=== PATIENT | female | born 1935 | race African-American/Black ===

== ENCOUNTER 2019-11-17 09:59 | Inpatient (IN) | payer BC, MEDICAID ==
[~2019-11-17] VITALS: Ht 167.6 cm; Wt 78.1 kg
[~2019-11-17 09:59] MED LIST: CARV12.545 MT; DILT90TA2 PO; FURO-152 MT
[2019-11-17] MEDS ORDERED: ALBUTEROL (0.083%) 2.5MG/3ML NEB HHN STA (10:28)
[2019-11-17] MEDS ORDERED: IPRATROPIUM BROMIDE (0.02%) 0.5MG/2.5ML NEB HHN STA (10:28)
[2019-11-17] MEDS ORDERED: METHYLPREDNISOLONE SOD SUCC 125 MG/2 ML VIAL IV STA (10:28)
[2019-11-17] MEDS ORDERED: DILTIAZEM HCL 5MG/ML 5ML VIAL IV ONE (10:30)
[2019-11-17 11:36] LABS: BASOPHILS % 0.8 % (0.0-2.0); EOSINOPHILS % 1.5 % (0.0-5.0); HEMATOCRIT. 40.1 % (36.0-48.0); HEMOGLOBIN. 13.4 g/dL (12.0-16.0); LYMPHOCYTES % 23.8 % (20.0-50.0); MEAN CORPUSCULAR HEMOGLOBIN 29.8 pg (28.0-32.0); MEAN CORPUSCULAR VOLUME 88.9 fL (81.0-99.0); MEAN PLATELET VOLUME 8.5 fl (7.4-10.4); MONOCYTES % 12.1 % (2.0-8.0); NEUTROPHILS % 61.8 % (40.0-76.0); PLATELET 195 x1000/uL (130-400); RED BLOOD CELL COUNT 4.51 mill/uL (4.2-5.4); RED CELL DISTRIBUTION WIDTH 16.9 % (11.6-14.6)
[2019-11-17] MEDS ORDERED: SODIUM CHLORIDE 0.9% 1,000 ML IV ONE (11:41)
[2019-11-17 11:43] LABS: CHLORIDE 99 mEq/L (98-107)
[2019-11-17] MEDS ORDERED: DILTIAZEM HCL 125 MG in DEXT 5% WATER 100 ML IV ONE (11:45)
[2019-11-17 11:48] LABS: CLARITY URINE CLOUDY (CLEAR); COLOR URINE YELLOW (YELLOW); KETONES URINE NEGATIVE (NEGATIVE); LEUKOCYTE ESTERASE URINE 2+ (NEGATIVE); NITRITE URINE NEGATIVE (NEGATIVE); OCCULT BLOOD URINE 1+ (NEGATIVE); PROTEIN URINE 1+ (NEGATIVE); SPECIFIC GRAVITY URINE 1.019 (1.005-1.030)
[2019-11-17 11:52] LABS: INR 1.1; PROTHROMBIN TIME 11.5 sec (9.6-11.0)
[2019-11-17] MEDS ORDERED: FUROSEMIDE 40MG/4ML VIAL IVP NR (12:00)
[2019-11-17] MEDS ORDERED: LEVOFLOXACIN 500MG PREMIX 100 ML IV SCH (12:00)
[2019-11-17] MEDS ORDERED: NITROGLYCERIN OINT 1GM/INCH UDPKT TD NR (12:00)
[2019-11-17] MEDS ORDERED: IPRATROPIUM/ALBUTEROL 0.5-3(2.5)MG/3ML NEB HHN PRN (13:15)
[2019-11-17] MEDS ORDERED: CLONIDINE 0.1MG TABLET PO PRN (13:15)
[2019-11-17] MEDS ORDERED: DIPHENHYDRAMINE 50MG/ML VIAL IV PRN (13:15)
[2019-11-17] MEDS ORDERED: ACETAMINOPHEN 325MG TABLET PO PRN (13:15)
[2019-11-17] MEDS ORDERED: HYDROCODONE/ACETAMINOPHEN 5/325MG TABLET PO PRN (13:15)
[2019-11-17] MEDS ORDERED: ONDANSETRON HCL 4MG/2ML INJ IV PRN (13:15)
[2019-11-17 13:27] LABS: PHOSPHORUS 3.7 mg/dL (2.5-4.9)
[2019-11-17 14:50] VITALS: BP 121/68
[2019-11-17 14:53] VITALS: BP 119/85
[2019-11-17] MEDS ORDERED: VERAPAMIL HCL 2.5 MG/1 ML 2ML VIAL IV PRN (15:30)
[2019-11-17 16:04] VITALS: BP 117/71
[2019-11-17] MEDS: DILTIAZEM HCL 90MG TABLET PO SCH (16:16)
[2019-11-17 18:00] VITALS: BP 103/69
[2019-11-17 20:00] VITALS: BP 111/66
[2019-11-17 22:00] VITALS: BP 118/71
[2019-11-18] VITALS (13 sets, daily range): BP systolic 100–135; BP diastolic 65–82
[2019-11-18] MEDS: DILTIAZEM HCL 90MG TABLET PO SCH ×3 (00:01→16:06)
[2019-11-18 07:12] LABS: BASOPHILS % 0.2 % (0.0-2.0); HEMOGLOBIN. 11.6 g/dL (12.0-16.0); LYMPHOCYTES % 10.9 % (20.0-50.0); MEAN CORPUSCULAR HEMOGLOBIN 29.4 pg (28.0-32.0); MEAN CORPUSCULAR VOLUME 88.9 fL (81.0-99.0); MEAN PLATELET VOLUME 8.3 fl (7.4-10.4); MONOCYTES % 4.6 % (2.0-8.0); NEUTROPHILS % 84.3 % (40.0-76.0); PLATELET 171 x1000/uL (130-400); RED BLOOD CELL COUNT 3.93 mill/uL (4.2-5.4); RED CELL DISTRIBUTION WIDTH 17.1 % (11.6-14.6)
[2019-11-18 07:34] LABS: CHLORIDE 102 mEq/L (98-107)
[2019-11-18 07:45] LABS: LDL CHOLESTEROL 54 mg/dL (5-100)
[2019-11-18 07:47] LABS: HDL CHOLESTEROL 44 mg/dL (40-59)
[2019-11-18] MEDS ORDERED: LEVOFLOXACIN 250MG PREMIX 50 ML IV SCH (12:00)
[2019-11-18] MEDS: FUROSEMIDE 40MG TABLET PO SCH (12:46)
[2019-11-18] MEDS: ASPIRIN 81MG EC TABLET PO SCH (12:46)
[2019-11-18] MEDS: METOPROLOL TARTRATE 25MG TABLET PO SCH ×2 (12:47→20:35)
[2019-11-19] VITALS (12 sets, daily range): BP systolic 99–137; BP diastolic 53–81
[2019-11-19] MEDS: DILTIAZEM HCL 90MG TABLET PO SCH ×3 (00:10→16:58)
[2019-11-19 07:21] LABS: HEMATOCRIT. 35.1 % (36.0-48.0); HEMOGLOBIN. 11.8 g/dL (12.0-16.0); MEAN CORPUSCULAR HEMOGLOBIN 29.8 pg (28.0-32.0); MEAN CORPUSCULAR VOLUME 88.9 fL (81.0-99.0); MEAN PLATELET VOLUME 8.4 fl (7.4-10.4); PLATELET 180 x1000/uL (130-400); RED BLOOD CELL COUNT 3.95 mill/uL (4.2-5.4); RED CELL DISTRIBUTION WIDTH 16.8 % (11.6-14.6)
[2019-11-19] MEDS: FUROSEMIDE 40MG TABLET PO SCH (07:47)
[2019-11-19] MEDS: ASPIRIN 81MG EC TABLET PO SCH (07:48)
[2019-11-19] MEDS: METOPROLOL TARTRATE 25MG TABLET PO SCH ×2 (07:48→20:44)
[2019-11-19] MEDS ORDERED: LEVOFLOXACIN 250MG PREMIX 50 ML IV SCH (13:00)
[2019-11-19 16:04] LABS: PLATELET ESTIMATE NORMAL
[2019-11-20] VITALS (12 sets, daily range): BP systolic 103–126; BP diastolic 58–79
[2019-11-20] MEDS: DILTIAZEM HCL 90MG TABLET PO SCH ×2 (00:30→09:47)
[2019-11-20 08:59] LABS: BASOPHILS % 0.2 % (0.0-2.0); EOSINOPHILS % 0.6 % (0.0-5.0); HEMOGLOBIN. 11.9 g/dL (12.0-16.0); LYMPHOCYTES % 11.8 % (20.0-50.0); MEAN CORPUSCULAR HEMOGLOBIN 29.5 pg (28.0-32.0); MEAN CORPUSCULAR VOLUME 88.9 fL (81.0-99.0); MEAN PLATELET VOLUME 7.9 fl (7.4-10.4); MONOCYTES % 13.6 % (2.0-8.0); NEUTROPHILS % 73.8 % (40.0-76.0); PLATELET 179 x1000/uL (130-400); RED BLOOD CELL COUNT 4.05 mill/uL (4.2-5.4); RED CELL DISTRIBUTION WIDTH 17.3 % (11.6-14.6)
[2019-11-20 09:00] LABS: PHOSPHORUS 3.3 mg/dL (2.5-4.9)
[2019-11-20] MEDS: METOPROLOL TARTRATE 25MG TABLET PO SCH ×2 (09:46→21:08)
[2019-11-20] MEDS: ASPIRIN 81MG EC TABLET PO SCH (09:47)
[2019-11-20] MEDS: FUROSEMIDE 40MG TABLET PO SCH (09:47)
[2019-11-20] MEDS ORDERED: VERAPAMIL HCL 2.5 MG/1 ML 2ML VIAL IV PRN (10:15)
[2019-11-20] MEDS ORDERED: LEVOFLOXACIN 250MG TABLET PO SCH (11:00)
[2019-11-20] MEDS: DILTIAZEM HCL 300MG CAPSULE SR 24HR PO SCH (17:23)
[2019-11-21] VITALS (11 sets, daily range): BP systolic 103–138; BP diastolic 63–87
[2019-11-21] MEDS: FUROSEMIDE 40MG TABLET PO SCH (08:12)
[2019-11-21] MEDS: ASPIRIN 81MG EC TABLET PO SCH (08:12)
[2019-11-21] MEDS: DILTIAZEM HCL 300MG CAPSULE SR 24HR PO SCH (08:12)
[2019-11-21] MEDS: METOPROLOL TARTRATE 25MG TABLET PO SCH ×2 (08:13→21:13)
[2019-11-21] MEDS ORDERED: SODIUM POLYSTYRENE SULFONATE 15 G/60 ML BOT PO SCH (12:00)
[2019-11-21] MEDS ORDERED: METO25TA6 PO (19:06)
[2019-11-21] MEDS ORDERED: FURO40TA5 PO (19:06)
[2019-11-21] MEDS ORDERED: DILT300C35 PO (19:06)
[2019-11-21] MEDS ORDERED: ASPI-1158 PO (19:06)
== END 2019-11-21 22:40 | disposition home or self-care (01) | DRG 308 ==
LOC: ER 09:59 → 3WST 12:50 → EDBEDREQ 12:55 → EDBEDREQSVC 12:55 → ENRESERV 13:32 → 3WST 14:57
PROVIDERS: ADMIT Internal Medicine; ATTEND Internal Medicine
DX: I48.91 Unspecified atrial fibrillation (principal); J96.90 Respiratory failure, unspecified, unspecified whether with hypoxia or hypercapnia; I50.32 Chronic diastolic (congestive) heart failure; N39.0 Urinary tract infection, site not specified; E87.1 Hypo-osmolality and hyponatremia; E87.2 Acidosis; I42.9 Cardiomyopathy, unspecified; E87.5 Hyperkalemia; R26.89 Other abnormalities of gait and mobility; I25.10 Atherosclerotic heart disease of native coronary artery without angina pectoris; E78.5 Hyperlipidemia, unspecified; R74.0 Nonspecific elevation of levels of transaminase and lactic acid dehydrogenase [LDH]; E80.6 Other disorders of bilirubin metabolism; Z88.0 Allergy status to penicillin; Z95.1 Presence of aortocoronary bypass graft; Z99.3 Dependence on wheelchair; Z95.3 Presence of xenogenic heart valve; Z87.891 Personal history of nicotine dependence; Z82.49 Family history of ischemic heart disease and other diseases of the circulatory system; Z95.5 Presence of coronary angioplasty implant and graft; Z79.899 Other long term (current) drug therapy
CPT/HCPCS: 36415; 71045; 80048; 80053; 80061; 80076; 81003; 82248; 83605; 83735; 83880; 84100; 84132; 84145; 84443; 84484; 85025; 87804; 93005; 93306; 93970; 94640; 96374; 97116; 97162; 99291; J1940; J1956; J2930; J3490; J7030; J7060; J7611